=== PATIENT | male | born 1960 | race Caucasian/White ===

== ENCOUNTER 2024-05-29 12:22 | Emergency (ER) | payer MEDICAID, OTHER ==
[~2024-05-29] VITALS: Ht 182.9 cm; Wt 100.0 kg
[2024-05-29 12:43] VITALS: BP 83/51; RESP 16; O2SAT 92
[2024-05-29 12:47] VITALS: PULSE 90
== END 2024-05-29 14:54 | disposition left against medical advice (07) ==
LOC: ER 12:26
DX: R53.1 Weakness (principal); Z53.1 Procedure and treatment not carried out because of patient's decision for reasons of belief and group pressure
CPT/HCPCS: 93005